=== PATIENT | female | born 1950 | race African-American/Black ===

== ENCOUNTER → 2018-07-23 | Outpatient (CLI) | payer OTHER ==
[~2018-07-23] MED LIST: ACETAMINOPHEN650 M5 PO; ADVAIR HFA 1112 UNIT INH; AMOXICILLIN 50500 MG PO; ATENOLOL; ATENOLOL 50MG T50 M1 PO; BARLEY; CHLORTHALIDONE25 MG PO; CIPROFLOXACIN500 M1 PO; EDARBI80 MG PO; HYDROCHLOROTHIA25 M2 PO; LEXAPRO 10 MG T10 M1 PO; LISINOPRIL40 MG PO; MOBIC7.5 MG PO; NAPROSYN500 MG PO; NORCO 5-325 TA1 EACH PO; NORVASC10 MG PO; OCUFLOX10 ML OP; PAXIL10 MG; PERCOCET 5-3251 EACH PO; RESTORIL15 MG PO; SINGULAIR 10 MG10 M1 PO; VICODIN 5-5001 EACH PO
== END ==
LOC: M.RAD 07-16 13:30
DX: Z12.31 Encounter for screening mammogram for malignant neoplasm of breast (principal); M85.89 Other specified disorders of bone density and structure, multiple sites; Z78.0 Asymptomatic menopausal state